=== PATIENT | male | born 1985 | race Caucasian/White ===

== ENCOUNTER 2022-11-03 11:39 | Inpatient (IN) | payer BC, SELFPAY ==
[~2022-11-03 11:39] MED LIST: Magnevist 469MG/ML 20 ML VIAL ONE
[2022-11-03 13:29] VITALS: BMI 31.0
[2022-11-03] MEDS ORDERED: Promethazine HCl 25 MG/ML VIAL IM PRN (14:18)
[2022-11-03] MEDS ORDERED: Ondansetron ODT 4 MG TAB PO PRN (14:18)
[2022-11-03] MEDS ORDERED: Acetaminophen 325 MG TAB PO PRN (14:18)
[2022-11-03] MEDS ORDERED: Sodium Chloride 0.9% 1,000 ML IV SCH (14:30)
[2022-11-03] MEDS ORDERED: Lorazepam 2 MG/ML VIAL IM PRN (14:52)
[2022-11-03] MEDS ORDERED: Lorazepam 1 MG TAB PO PRN (14:52)
[2022-11-03 14:54] LABS: Hematocrit 55.8 % (38.8-50.0); Hemoglobin 19.5 g/dL (13.5-17.5); Mean Corpuscular HGB CONC 34.9 g/dL (32.0-36.0); Mean Corpuscular Hemoglobin 32.7 pg (27.0-33.0); Mean Corpuscular Volume 93.5 fl (81.2-95.1); Mean Platelet Volume 10.1 fl (7.4-10.4); Platelet Count 207 10x3/uL (150-450); RBC Distribution Width 12.8 % (11.5-14.5); Red Blood Cell (RBC) Count 5.97 10x6/uL (4.32-5.72); White Blood Cell (WBC) Count 20.2 10x3/uL (3.5-10.5)
[2022-11-03] MEDS ORDERED: Electrolyte Replacement Protocol 1 EACH FS SCH (15:00)
[2022-11-03 15:11] LABS: ALT (SGPT) 153 U/L (8-55); AST (SGOT) 68 U/L (5-34); Albumin 3.7 g/dL (3.5-5.0); Alkaline Phosphatase 54 U/L (40-110); Anion Gap 16 mmol/L (10-20); BUN (Urea Nitrogen) 27 mg/dL (8.9-20.6); Bilirubin, Total 2.6 mg/dL (0.2-1.2); Calc. Creatinine Clearance 149 mL/min (70-130); Calcium 8.7 mg/dL (7.8-10.44); Carbon Dioxide 23 mmol/L (22-29); Chloride 99 mmol/L (98-107); Estimated GFR 87; Globulin 3.3 g/dL (2.4-3.5); Glucose 192 mg/dL (70-105); Magnesium 1.7 mg/dL (1.6-2.6); Phosphorus 1.6 mg/dL (2.3-4.7); Potassium 5.9 mmol/L (3.5-5.1); Sodium 132 mmol/L (136-145)
[2022-11-03 15:15] LABS: Cardiac Risk 2.4 (Less than 4.5); Cholesterol 106 mg/dl (< 200 Desired); HDL Cholesterol 44 mg/dL (>60 Neg Risk); LDL Cholesterol, Calculated 51 mg/dL; Triglycerides 54 mg/dL (Less than 150)
[2022-11-03] MEDS ORDERED: fentaNYL 50 mcg/mL 1 mL Vial SLOW IVP SCH ×2 (15:15→20:00)
[2022-11-03 15:20] LABS: MDiff Complete? YES
[2022-11-03 15:23] LABS: Band 14 % (5-11); Lymphocytes 3 % (21-51); Monocytes 10 % (0-10); Neutrophil 73 % (42-75)
[2022-11-03 15:26] LABS: Giant Platelets SLIGHT HPF (0-5); RBC Morph Comment Within Normal Limits; Toxic Granulation SLIGHT
[2022-11-03 15:27] LABS: Platelet Adequacy Comment Appears Adequate; Platelet Clumps SLIGHT
[2022-11-03 15:30] LABS: Lipase 1452 U/L (8-78)
[2022-11-03] MEDS ORDERED: Lactated Ringer's 1,000 ML IV SCH ×3 (15:30→15:45)
[2022-11-03] MEDS ORDERED: Ondansetron PF 4 MG/2 ML Vial IVP PRN (16:08)
[2022-11-03] MEDS ORDERED: diphenhydrAMINE 25 MG CAP PO PRN (16:08)
[2022-11-03] MEDS ORDERED: HYDROmorphone 10 mg/100 ml CADD IVPB PRN (16:08)
[2022-11-03] MEDS ORDERED: diphenhydrAMINE 50 MG/ML VIAL IVP PRN (16:08)
[2022-11-03] MEDS ORDERED: diphenhydrAMINE 50 MG/ML VIAL IM PRN (16:08)
[2022-11-03] MEDS ORDERED: Naloxone HCl 0.4 mg/ml Vial IVP PRN (16:08)
[2022-11-03] MEDS ORDERED: Naloxone HCl 0.4 mg/ml Vial IV PRN (16:08)
[2022-11-03] MEDS ORDERED: Communication Order-Pharmacy FS SCH (16:15)
[2022-11-03 16:55] LABS: ALT (SGPT) 152 U/L (8-55); AST (SGOT) 69 U/L (5-34)
[2022-11-03] MEDS: Sodium Chloride 0.9% 1,000 ML IV SCH ×2 (16:58→21:37)
[2022-11-03] MEDS ORDERED: Calcium Gluconate 100 MG/ML 10 ML IVPB SCH (17:30)
[2022-11-03] MEDS ORDERED: HYDROmorphone/PF 10 MG in Sodium Chloride 0.9% 49 ML IVPB PRN (17:45)
[2022-11-03] MEDS ORDERED: Dextrose 50% Abboject 50 ML SYRINGE SLOW IVP SCH (18:00)
[2022-11-03] MEDS ORDERED: Insulin Regular 300 UNITS/3 ML VIAL IVP SCH (18:00)
[2022-11-03] MEDS ORDERED: Calcium Gluconate 4.6 MEQ in Sodium Chloride 0.9% 100 ML IVPB SCH (18:00)
[2022-11-03] MEDS ORDERED: Sodium Bicarb 50 MEQ/50 ML Abboject 8.4% SYRINGE IVP SCH (18:00)
[2022-11-03] MEDS ORDERED: Magnesium Sulfate/D5W 1 GM/100 ML BAG IVPB SCH (20:30)
[2022-11-03] MEDS ORDERED: Magnesium 2 GM/50 ML(in water) 2 GM in Premix Bag 1 BAG IVPB SCH (21:00)
[2022-11-03 21:11] LABS: Anion Gap 15 mmol/L (10-20); BUN (Urea Nitrogen) 25 mg/dL (8.9-20.6); Calc. Creatinine Clearance 180 mL/min (70-130); Calcium 8.7 mg/dL (7.8-10.44); Carbon Dioxide 23 mmol/L (22-29); Chloride 101 mmol/L (98-107); Estimated GFR 109; Glucose 181 mg/dL (70-105); Potassium 4.6 mmol/L (3.5-5.1); Sodium 134 mmol/L (136-145)
[2022-11-03 21:27] LABS: Band 32 % (5-11); Hematocrit 51.5 % (38.8-50.0); Hemoglobin 18.2 g/dL (13.5-17.5); Lymphocytes 2 % (21-51); MDiff Complete? YES; Mean Corpuscular HGB CONC 35.3 g/dL (32.0-36.0); Mean Corpuscular Hemoglobin 32.7 pg (27.0-33.0); Mean Corpuscular Volume 92.6 fl (81.2-95.1); Mean Platelet Volume 10.2 fl (7.4-10.4); Metamyelocyte 3 % (0-0); Monocytes 7 % (0-10); Neutrophil 55 % (42-75); Platelet Adequacy Comment Appears Adequate; Platelet Count 176 10x3/uL (150-450); RBC Distribution Width 12.8 % (11.5-14.5); Reactive Lymphocytes 1 % (0-10); Red Blood Cell (RBC) Count 5.56 10x6/uL (4.32-5.72); White Blood Cell (WBC) Count 17.8 10x3/uL (3.5-10.5)
[2022-11-03] MEDS: Ketorolac Tromethamine 30 MG/ML VIAL IVP SCH (22:00)
[2022-11-03] MEDS: Thiamine HCl 200 MG/2 ML VIAL SLOW IVP SCH (22:02)
[2022-11-03] MEDS ORDERED: Potassium Phosphate 30 MMOL in Sodium Chloride 0.9% 250 ML 250 ML IVPB SCH (22:15)
[2022-11-04] MEDS: hydrALAZINE 20 MG/ML VIAL SLOW IVP PRN ×4 (00:05→15:46)
[2022-11-04] MEDS: Ketorolac Tromethamine 30 MG/ML VIAL IVP SCH ×4 (00:10→18:19)
[2022-11-04] MEDS: Sodium Chloride 0.9% 1,000 ML IV SCH ×5 (01:51→23:27)
[2022-11-04] MEDS: Morphine 2 MG/ML VIAL SLOW IVP PRN ×4 (03:24→22:04)
[2022-11-04 03:53] LABS: Magnesium 2.2 mg/dL (1.6-2.6); Phosphorus 1.8 mg/dL (2.3-4.7)
[2022-11-04 12:41] LABS: Hematocrit 47.6 % (38.8-50.0); Hemoglobin 16.8 g/dL (13.5-17.5); Mean Corpuscular HGB CONC 35.3 g/dL (32.0-36.0); Mean Corpuscular Hemoglobin 33.1 pg (27.0-33.0); Mean Corpuscular Volume 93.9 fl (81.2-95.1); Mean Platelet Volume 10.2 fl (7.4-10.4); Platelet Count 181 10x3/uL (150-450); RBC Distribution Width 13.1 % (11.5-14.5); Red Blood Cell (RBC) Count 5.07 10x6/uL (4.32-5.72); White Blood Cell (WBC) Count 18.5 10x3/uL (3.5-10.5)
[2022-11-04 13:09] LABS: MDiff Complete? YES
[2022-11-04 13:13] LABS: Band 11 % (5-11); Lymphocytes 3 % (21-51); Monocytes 4 % (0-10); Neutrophil 82 % (42-75)
[2022-11-04] MEDS ORDERED: Labetalol HCl 100 MG/20 ML VIAL SLOW IVP PRN (13:13)
[2022-11-04 13:14] LABS: Platelet Adequacy Comment Appears Adequate; RBC Morph Comment Within Normal Limits
[2022-11-04 14:28] LABS: ALT (SGPT) 91 U/L (8-55); AST (SGOT) 51 U/L (5-34); Alkaline Phosphatase 51 U/L (40-110); Anion Gap 15 mmol/L (10-20); BUN (Urea Nitrogen) 20 mg/dL (8.9-20.6); Bilirubin, Total 1.8 mg/dL (0.2-1.2); Calc. Creatinine Clearance 204 mL/min (70-130); Calcium 7.9 mg/dL (7.8-10.44); Carbon Dioxide 21 mmol/L (22-29); Chloride 106 mmol/L (98-107); Estimated GFR 117; Globulin 2.6 g/dL (2.4-3.5); Glucose 146 mg/dL (70-105); Potassium 4.8 mmol/L (3.5-5.1); Protein, Total 5.6 g/dL (6.0-8.3); Sodium 137 mmol/L (136-145)
[2022-11-04] MEDS ORDERED: Lorazepam 1 MG TAB PO PRN (14:52)
[2022-11-04] MEDS: cefTRIAXone\\ROCEPHIN 2 GM in Sodium Chloride 0.9% 100 ML IVPB SCH (15:00)
[2022-11-04 15:03] LABS: Lipase 683 U/L (8-78)
[2022-11-04 15:41] LABS: Strep pneumo Urine Ag NEGATIVE (NEGATIVE)
[2022-11-04] MEDS: Morphine 4 MG/ML VIAL SLOW IVP PRN (15:48)
[2022-11-04] MEDS: Thiamine HCl 200 MG/2 ML VIAL SLOW IVP SCH (16:05)
[2022-11-04 16:22] LABS: SARS-CoV-2 NAA Rapid Test Not Detected (NotDetected)
[2022-11-04] MEDS ORDERED: Glucagon 1 MG/ML KIT IM PRN (16:45)
[2022-11-04] MEDS ORDERED: Dextrose 50% Abboject 50 ML SYRINGE SLOW IVP PRN (16:45)
[2022-11-04] MEDS ORDERED: Dextrose 5% in Water 1,000 ML IV PRN (16:45)
[2022-11-04] MEDS: Enalaprilat Dihydrate 1.25 MG/ML VIAL SLOW IVP SCH (18:19)
[2022-11-04] MEDS: Famotidine/PF 20 mg/2ml Vial SLOW IVP SCH (20:23)
[2022-11-05] MEDS: Enalaprilat Dihydrate 1.25 MG/ML VIAL SLOW IVP SCH ×5 (00:18→23:10)
[2022-11-05] MEDS: Ketorolac Tromethamine 30 MG/ML VIAL IVP SCH ×4 (00:18→17:46)
[2022-11-05] MEDS: Sodium Chloride 0.9% 1,000 ML IV SCH ×5 (03:03→23:11)
[2022-11-05] MEDS: Morphine 2 MG/ML VIAL SLOW IVP PRN (03:03)
[2022-11-05 03:40] LABS: Hematocrit 42.3 % (38.8-50.0); Hemoglobin 14.8 g/dL (13.5-17.5); MDiff Complete? YES; Mean Corpuscular Hemoglobin 33.1 pg (27.0-33.0); Mean Corpuscular Volume 94.6 fl (81.2-95.1); Mean Platelet Volume 10.5 fl (7.4-10.4); Platelet Count 181 10x3/uL (150-450); RBC Distribution Width 13.1 % (11.5-14.5); Red Blood Cell (RBC) Count 4.47 10x6/uL (4.32-5.72); White Blood Cell (WBC) Count 14.5 10x3/uL (3.5-10.5)
[2022-11-05 03:44] LABS: PTT 28.7 sec (22.0-33.0); Prothrombin Time 11.2 sec (9.5-12.1)
[2022-11-05 04:20] LABS: ALT (SGPT) 74 U/L (8-55); AST (SGOT) 39 U/L (5-34); Albumin 2.8 g/dL (3.5-5.0); Alkaline Phosphatase 60 U/L (40-110); Anion Gap 13 mmol/L (10-20); BUN (Urea Nitrogen) 19 mg/dL (8.9-20.6); Bilirubin, Total 1.3 mg/dL (0.2-1.2); Calc. Creatinine Clearance 214 mL/min (70-130); Calcium 8.4 mg/dL (7.8-10.44); Carbon Dioxide 24 mmol/L (22-29); Chloride 104 mmol/L (98-107); Estimated GFR 119; Glucose 143 mg/dL (70-105); Lipase 497 U/L (8-78); Magnesium 2.1 mg/dL (1.6-2.6); Phosphorus 1.8 mg/dL (2.3-4.7); Potassium 3.8 mmol/L (3.5-5.1); Protein, Total 5.8 g/dL (6.0-8.3); Sodium 137 mmol/L (136-145)
[2022-11-05] MEDS ORDERED: Potassium Phosphate 15 MMOL in Sodium Chloride 0.9% 100 ML IVPB SCH (04:30)
[2022-11-05 04:35] LABS: Band 3 % (5-11); Lymphocytes 5 % (21-51); Monocytes 4 % (0-10); Neutrophil 88 % (42-75)
[2022-11-05 04:38] LABS: Platelet Adequacy Comment Appears Adequate; RBC Morph Comment Within Normal Limits
[2022-11-05] MEDS: Morphine 4 MG/ML VIAL SLOW IVP PRN ×3 (07:14→20:04)
[2022-11-05] MEDS: Famotidine/PF 20 mg/2ml Vial SLOW IVP SCH (07:41)
[2022-11-05] MEDS: hydrALAZINE 20 MG/ML VIAL SLOW IVP PRN (12:15)
[2022-11-05] MEDS ORDERED: [UNRECOGNIZED DRUG - OTHER] IV SCH (14:00)
[2022-11-05] MEDS ORDERED: COPPER IV SCH (14:00)
[2022-11-05] MEDS ORDERED: SELENIUM IV SCH (14:00)
[2022-11-05] MEDS ORDERED: ZINC IV SCH (14:00)
[2022-11-05] MEDS ORDERED: MANGANESE IV SCH (14:00)
[2022-11-05] MEDS ORDERED: MULTITRACE IV SCH (14:00)
[2022-11-05] MEDS ORDERED: MULTIVITAMINS IV SCH ×2 (14:00)
[2022-11-05] MEDS ORDERED: [UNRECOGNIZED DRUG - OTHER] IV SCH (14:00)
[2022-11-05] MEDS ORDERED: Lorazepam 1 MG TAB PO PRN (14:52)
[2022-11-05] MEDS: cefTRIAXone\\ROCEPHIN 2 GM in Sodium Chloride 0.9% 100 ML IVPB SCH (14:55)
[2022-11-05] MEDS: Lorazepam 0.5 MG TAB PO SCH ×2 (14:56→20:04)
[2022-11-05] MEDS: Thiamine HCl 200 MG/2 ML VIAL SLOW IVP SCH (16:42)
[2022-11-05] MEDS: HumaLOG 300 UNITS/3 ML VIAL SC PRN ×2 (18:23→23:20)
[2022-11-06] MEDS: Morphine 4 MG/ML VIAL SLOW IVP PRN ×2 (01:37→05:39)
[2022-11-06] MEDS: Lorazepam 0.5 MG TAB PO SCH ×2 (02:47→08:29)
[2022-11-06 03:11] LABS: ALT (SGPT) 76 U/L (8-55); AST (SGOT) 52 U/L (5-34); Albumin 2.8 g/dL (3.5-5.0); Alkaline Phosphatase 71 U/L (40-110); Anion Gap 11 mmol/L (10-20); BUN (Urea Nitrogen) 17 mg/dL (8.9-20.6); Bilirubin, Total 1.3 mg/dL (0.2-1.2); Calc. Creatinine Clearance 217 mL/min (70-130); Calcium 8.2 mg/dL (7.8-10.44); Carbon Dioxide 26 mmol/L (22-29); Chloride 105 mmol/L (98-107); Estimated GFR 119; Globulin 2.9 g/dL (2.4-3.5); Glucose 255 mg/dL (70-105); Lipase 281 U/L (8-78); Magnesium 2.4 mg/dL (1.6-2.6); Potassium 3.8 mmol/L (3.5-5.1); Protein, Total 5.7 g/dL (6.0-8.3); Sodium 138 mmol/L (136-145)
[2022-11-06 03:15] LABS: #Basophils 0.1 10x3/uL (0.0-0.2); #Eosinphils 0.2 10x3/uL (0.0-0.5); #Monocytes 1.1 10x3/uL (0.0-1.1); #Neutrophils 11.5 10x3/uL (1.5-8.4); %Basophils 0.4 % (0.0-2.0); %Eosinophils 1.5 % (0.0-6.0); %Lymphocytes 4.4 % (18.0-47.0); %Neutrophils 84.5 % (40.0-75.0); Hematocrit 38.1 % (38.8-50.0); Mean Corpuscular HGB CONC 34.1 g/dL (32.0-36.0); Mean Corpuscular Hemoglobin 32.5 pg (27.0-33.0); Mean Corpuscular Volume 95.3 fl (81.2-95.1); Mean Platelet Volume 9.7 fl (7.4-10.4); Platelet Count 174 10x3/uL (150-450); RBC Distribution Width 13.2 % (11.5-14.5); White Blood Cell (WBC) Count 13.6 10x3/uL (3.5-10.5)
[2022-11-06] MEDS: Enalaprilat Dihydrate 1.25 MG/ML VIAL SLOW IVP SCH ×4 (05:00→23:00)
[2022-11-06] MEDS: Sodium Chloride 0.9% 1,000 ML IV SCH ×3 (05:00→23:01)
[2022-11-06] MEDS: HumaLOG 300 UNITS/3 ML VIAL SC PRN ×3 (05:09→18:09)
[2022-11-06] MEDS ORDERED: Potassium Phosphate 15 MMOL in Sodium Chloride 0.9% 100 ML IVPB SCH ×2 (06:00→08:00)
[2022-11-06] MEDS: Pantoprazole 40 MG VIAL IVP SCH (08:29)
[2022-11-06] MEDS ORDERED: Acetaminophen 325 MG TAB PO PRN (09:47)
[2022-11-06] MEDS: hydrALAZINE 20 MG/ML VIAL SLOW IVP PRN (09:48)
[2022-11-06] MEDS ORDERED: Furosemide 20 MG/2 ML VIAL SLOW IVP SCH (10:30)
[2022-11-06] MEDS: traMADol HCl 50 MG TAB PO PRN ×3 (11:39→20:24)
[2022-11-06] MEDS ORDERED: FAT EMULSION IV SCH (14:00)
[2022-11-06] MEDS ORDERED: MULTIVITAMINS IV SCH (14:00)
[2022-11-06] MEDS ORDERED: Fat Emulsion 250 ML IVPB SCH (14:00)
[2022-11-06] MEDS ORDERED: [UNRECOGNIZED DRUG - OTHER] IV SCH (14:00)
[2022-11-06] MEDS ORDERED: MULTITRACE IV SCH (14:00)
[2022-11-06] MEDS: cefTRIAXone\\ROCEPHIN 2 GM in Sodium Chloride 0.9% 100 ML IVPB SCH (15:39)
[2022-11-06] MEDS: Lorazepam 0.5 MG TAB PO PRN ×2 (16:25→20:24)
[2022-11-06] MEDS: Morphine 2 MG/ML VIAL SLOW IVP PRN (23:58)
[2022-11-07] MEDS: hydrALAZINE 20 MG/ML VIAL SLOW IVP PRN ×4 (00:03→15:33)
[2022-11-07] MEDS: HumaLOG 300 UNITS/3 ML VIAL SC PRN ×5 (00:10→23:25)
[2022-11-07] MEDS: Lorazepam 0.5 MG TAB PO PRN ×4 (00:26→20:34)
[2022-11-07] MEDS: Morphine 2 MG/ML VIAL SLOW IVP PRN ×2 (04:06→20:35)
[2022-11-07 04:15] LABS: Phosphorus 3.1 mg/dL (2.3-4.7)
[2022-11-07 04:16] LABS: ALT (SGPT) 120 U/L (8-55); AST (SGOT) 90 U/L (5-34); Albumin 2.8 g/dL (3.5-5.0); Alkaline Phosphatase 83 U/L (40-110); Anion Gap 15 mmol/L (10-20); BUN (Urea Nitrogen) 16 mg/dL (8.9-20.6); Bilirubin, Total 1.2 mg/dL (0.2-1.2); Calc. Creatinine Clearance 232 mL/min (70-130); Calcium 8.4 mg/dL (7.8-10.44); Carbon Dioxide 22 mmol/L (22-29); Chloride 103 mmol/L (98-107); Estimated GFR 121; Globulin 3.1 g/dL (2.4-3.5); Glucose 233 mg/dL (70-105); Lipase 154 U/L (8-78); Magnesium 2.4 mg/dL (1.6-2.6); Potassium 3.6 mmol/L (3.5-5.1); Protein, Total 5.9 g/dL (6.0-8.3); Sodium 136 mmol/L (136-145)
[2022-11-07 04:24] LABS: Hematocrit 37.2 % (38.8-50.0); Hemoglobin 12.6 g/dL (13.5-17.5); Mean Corpuscular HGB CONC 33.9 g/dL (32.0-36.0); Mean Corpuscular Volume 94.4 fl (81.2-95.1); Mean Platelet Volume 9.8 fl (7.4-10.4); Platelet Count 190 10x3/uL (150-450); RBC Distribution Width 13.1 % (11.5-14.5); Red Blood Cell (RBC) Count 3.94 10x6/uL (4.32-5.72); White Blood Cell (WBC) Count 12.3 10x3/uL (3.5-10.5)
[2022-11-07 04:25] LABS: MDiff Complete? YES
[2022-11-07] MEDS: Enalaprilat Dihydrate 1.25 MG/ML VIAL SLOW IVP SCH ×2 (05:51→11:29)
[2022-11-07 05:54] LABS: Eosinophils 1 % (0-10); Lymphocytes 7 % (21-51); Monocytes 7 % (0-10); Neutrophil 84 % (42-75); Reactive Lymphocytes 1 % (0-10)
[2022-11-07 05:55] LABS: Platelet Adequacy Comment Appears Adequate; RBC Morph Comment Within Normal Limits
[2022-11-07] MEDS: Pantoprazole 40 MG VIAL IVP SCH (08:22)
[2022-11-07] MEDS: Naloxegol 12.5 MG TAB PO SCH (08:36)
[2022-11-07] MEDS ORDERED: Furosemide 20 MG/2 ML VIAL SLOW IVP SCH (09:00)
[2022-11-07] MEDS: Polyethylene Glycol 3350 17 GM Packet PO SCH (10:50)
[2022-11-07] MEDS: cefTRIAXone\\ROCEPHIN 2 GM in Sodium Chloride 0.9% 100 ML IVPB SCH (14:32)
[2022-11-07] MEDS: cloNIDine 0.1 MG TAB PO SCH ×2 (16:52→20:34)
[2022-11-08] MEDS: Morphine 2 MG/ML VIAL SLOW IVP PRN (00:36)
[2022-11-08] MEDS ORDERED: Zolpidem Tartrate 5 MG TAB PO SCH (05:15)
[2022-11-08 05:26] LABS: Hematocrit 38.4 % (38.8-50.0); Hemoglobin 13.5 g/dL (13.5-17.5); Mean Corpuscular HGB CONC 35.2 g/dL (32.0-36.0); Mean Corpuscular Hemoglobin 32.7 pg (27.0-33.0); Mean Platelet Volume 10.1 fl (7.4-10.4); Platelet Count 238 10x3/uL (150-450); RBC Distribution Width 12.9 % (11.5-14.5); Red Blood Cell (RBC) Count 4.13 10x6/uL (4.32-5.72); White Blood Cell (WBC) Count 17.1 10x3/uL (3.5-10.5)
[2022-11-08 05:28] LABS: ALT (SGPT) 125 U/L (8-55); AST (SGOT) 64 U/L (5-34); Albumin 2.6 g/dL (3.5-5.0); Alkaline Phosphatase 83 U/L (40-110); Anion Gap 11 mmol/L (10-20); BUN (Urea Nitrogen) 17 mg/dL (8.9-20.6); Bilirubin, Total 1.5 mg/dL (0.2-1.2); Calc. Creatinine Clearance 229 mL/min (70-130); Calcium 8.3 mg/dL (7.8-10.44); Carbon Dioxide 28 mmol/L (22-29); Chloride 99 mmol/L (98-107); Estimated GFR 121; Globulin 2.9 g/dL (2.4-3.5); Glucose 151 mg/dL (70-105); Lipase 98 U/L (8-78); Magnesium 2.1 mg/dL (1.6-2.6); Potassium 3.5 mmol/L (3.5-5.1); Protein, Total 5.5 g/dL (6.0-8.3); Sodium 134 mmol/L (136-145)
[2022-11-08 05:30] LABS: Phosphorus 4.4 mg/dL (2.3-4.7)
[2022-11-08] MEDS: traMADol HCl 50 MG TAB PO PRN (05:41)
[2022-11-08 06:09] LABS: Band 2 % (5-11)
[2022-11-08 06:10] LABS: Lymphocytes 5 % (21-51); Monocytes 7 % (0-10); Neutrophil 83 % (42-75); Reactive Lymphocytes 3 % (0-10)
[2022-11-08 06:13] LABS: Platelet Adequacy Comment Appears Adequate; RBC Morph Comment Within Normal Limits
[2022-11-08 06:24] LABS: MDiff Complete? YES
[2022-11-08] MEDS ORDERED: Potassium Chloride 20 MEQ TAB PO SCH (08:00)
[2022-11-08] MEDS: Naloxegol 12.5 MG TAB PO SCH (08:05)
[2022-11-08] MEDS: cloNIDine 0.1 MG TAB PO SCH ×4 (08:43→20:56)
[2022-11-08] MEDS: Pantoprazole 40 MG VIAL IVP SCH (08:44)
[2022-11-08] MEDS: Polyethylene Glycol 3350 17 GM Packet PO SCH (08:44)
[2022-11-08] MEDS: Zolpidem Tartrate 5 MG TAB PO PRN (21:04)
[2022-11-09 03:56] LABS: Hematocrit 35.9 % (38.8-50.0); Hemoglobin 12.4 g/dL (13.5-17.5); Mean Corpuscular HGB CONC 34.5 g/dL (32.0-36.0); Mean Corpuscular Volume 92.5 fl (81.2-95.1); Mean Platelet Volume 10.3 fl (7.4-10.4); Platelet Count 246 10x3/uL (150-450); RBC Distribution Width 12.5 % (11.5-14.5); Red Blood Cell (RBC) Count 3.88 10x6/uL (4.32-5.72); White Blood Cell (WBC) Count 20.2 10x3/uL (3.5-10.5)
[2022-11-09 04:11] LABS: Phosphorus 3.8 mg/dL (2.3-4.7)
[2022-11-09 04:14] LABS: ALT (SGPT) 141 U/L (8-55); AST (SGOT) 108 U/L (5-34); Albumin 2.5 g/dL (3.5-5.0); Alkaline Phosphatase 106 U/L (40-110); Anion Gap 12 mmol/L (10-20); BUN (Urea Nitrogen) 14 mg/dL (8.9-20.6); Bilirubin, Total 1.9 mg/dL (0.2-1.2); Calc. Creatinine Clearance 226 mL/min (70-130); Carbon Dioxide 25 mmol/L (22-29); Chloride 98 mmol/L (98-107); Estimated GFR 120; Globulin 2.8 g/dL (2.4-3.5); Glucose 132 mg/dL (70-105); Magnesium 1.9 mg/dL (1.6-2.6); Potassium 3.6 mmol/L (3.5-5.1); Protein, Total 5.3 g/dL (6.0-8.3); Sodium 131 mmol/L (136-145)
[2022-11-09] MEDS: traMADol HCl 50 MG TAB PO PRN ×3 (04:55→20:27)
[2022-11-09 05:17] LABS: MDiff Complete? YES
[2022-11-09 05:33] LABS: Platelet Adequacy Comment Appears Adequate; RBC Morph Comment Within Normal Limits
[2022-11-09 05:37] LABS: Band 5 % (5-11); Lymphocytes 9 % (21-51); Monocytes 10 % (0-10); Neutrophil 76 % (42-75)
[2022-11-09] MEDS ORDERED: Magnesium 2 GM/50 ML(in water) 2 GM in Premix Bag 1 BAG IVPB SCH (08:00)
[2022-11-09] MEDS: cloNIDine 0.1 MG TAB PO SCH ×4 (09:23→20:27)
[2022-11-09] MEDS: Polyethylene Glycol 3350 17 GM Packet PO SCH (09:24)
[2022-11-09] MEDS: Pantoprazole 40 MG VIAL IVP SCH (09:25)
[2022-11-09] MEDS: Naloxegol 12.5 MG TAB PO SCH (10:01)
[2022-11-09] MEDS ORDERED: Vancomycin 1 GM in Premix Bag 1 BAG IVPB SCH (13:30)
[2022-11-09] MEDS ORDERED: VANCOMYCIN 1.75 GM/350 ML BAG 1.75 GM in Premix Bag 1 BAG IVPB SCH (13:30)
[2022-11-09] MEDS ORDERED: Piperacillin/Tazobactam 3.375 GM in Sodium Chloride 0.9% 100 ML IVPB SCH (13:30)
[2022-11-09] MEDS ORDERED: Piperacillin/Tazobactam 4.5 GM in Sodium Chloride 0.9% 100 ML IVPB SCH (14:00)
[2022-11-09] MEDS: Piperacillin/Tazobactam 3.375 GM in Sodium Chloride 0.9% 100 ML IVPB SCH (19:24)
[2022-11-09] MEDS: Vancomycin HCl 1 GM in Sodium Chloride 0.9% 250 ML 250 ML IVPB SCH (22:22)
[2022-11-09] MEDS: Zolpidem Tartrate 5 MG TAB PO PRN (22:28)
[2022-11-10] MEDS: Piperacillin/Tazobactam 3.375 GM in Sodium Chloride 0.9% 100 ML IVPB SCH ×4 (01:26→18:44)
[2022-11-10 04:18] LABS: ALT (SGPT) 199 U/L (8-55); AST (SGOT) 121 U/L (5-34); Albumin 2.5 g/dL (3.5-5.0); Alkaline Phosphatase 122 U/L (40-110); Anion Gap 12 mmol/L (10-20); BUN (Urea Nitrogen) 12 mg/dL (8.9-20.6); Bilirubin, Total 1.8 mg/dL (0.2-1.2); Calc. Creatinine Clearance 226 mL/min (70-130); Calcium 7.9 mg/dL (7.8-10.44); Carbon Dioxide 25 mmol/L (22-29); Chloride 98 mmol/L (98-107); Estimated GFR 120; Glucose 111 mg/dL (70-105); Magnesium 2.1 mg/dL (1.6-2.6); Potassium 3.5 mmol/L (3.5-5.1); Protein, Total 5.5 g/dL (6.0-8.3); Sodium 131 mmol/L (136-145)
[2022-11-10 04:24] LABS: #Basophils 0.1 10x3/uL (0.0-0.2); #Eosinphils 0.5 10x3/uL (0.0-0.5); #Monocytes 1.6 10x3/uL (0.0-1.1); #Neutrophils 16.9 10x3/uL (1.5-8.4); %Basophils 0.5 % (0.0-2.0); %Eosinophils 2.5 % (0.0-6.0); %Monocytes 7.5 % (0.0-10.0); %Neutrophils 78.4 % (40.0-75.0); Hematocrit 35.4 % (38.8-50.0); Hemoglobin 12.3 g/dL (13.5-17.5); Mean Corpuscular HGB CONC 34.7 g/dL (32.0-36.0); Mean Corpuscular Hemoglobin 32.1 pg (27.0-33.0); Mean Corpuscular Volume 92.4 fl (81.2-95.1); Mean Platelet Volume 10.4 fl (7.4-10.4); Platelet Count 245 10x3/uL (150-450); RBC Distribution Width 12.6 % (11.5-14.5); Red Blood Cell (RBC) Count 3.83 10x6/uL (4.32-5.72); White Blood Cell (WBC) Count 21.6 10x3/uL (3.5-10.5)
[2022-11-10 04:44] LABS: Phosphorus 4.2 mg/dL (2.3-4.7)
[2022-11-10] MEDS: Vancomycin HCl 1 GM in Sodium Chloride 0.9% 250 ML 250 ML IVPB SCH (06:13)
[2022-11-10] MEDS ORDERED: Potassium Chloride 20 MEQ TAB PO SCH (08:00)
[2022-11-10] MEDS ORDERED: Cyclobenzaprine 10 MG TAB PO SCH (09:00)
[2022-11-10] MEDS: traMADol HCl 50 MG TAB PO PRN ×2 (10:12→19:27)
[2022-11-10] MEDS: Naloxegol 12.5 MG TAB PO SCH (10:16)
[2022-11-10] MEDS: cloNIDine 0.1 MG TAB PO SCH ×4 (10:16→21:48)
[2022-11-10] MEDS: Pantoprazole 40 MG VIAL IVP SCH (10:16)
[2022-11-10] MEDS: Polyethylene Glycol 3350 17 GM Packet PO SCH (10:17)
[2022-11-10 13:39] LABS: Vancomycin, Trough 7.8 ug/mL
[2022-11-10] MEDS ORDERED: VANCOMYCIN 1.25 GM/250 ML BAG 1.25 GM in Premix Bag 1 BAG IVPB SCH (15:15)
[2022-11-10] MEDS: VANCOMYCIN 1.25 GM/250 ML BAG 1.25 GM in Premix Bag 1 BAG IVPB SCH (21:47)
[2022-11-11] MEDS: traMADol HCl 50 MG TAB PO PRN ×3 (00:13→23:00)
[2022-11-11] MEDS: Piperacillin/Tazobactam 3.375 GM in Sodium Chloride 0.9% 100 ML IVPB SCH ×3 (02:31→17:52)
[2022-11-11 03:51] LABS: #Basophils 0.1 10x3/uL (0.0-0.2); #Eosinphils 0.6 10x3/uL (0.0-0.5); #Monocytes 1.7 10x3/uL (0.0-1.1); %Basophils 0.5 % (0.0-2.0); %Eosinophils 2.9 % (0.0-6.0); %Lymphocytes 6.6 % (18.0-47.0); %Monocytes 7.8 % (0.0-10.0); %Neutrophils 79.3 % (40.0-75.0); Hematocrit 32.9 % (38.8-50.0); Hemoglobin 11.4 g/dL (13.5-17.5); Mean Corpuscular HGB CONC 34.7 g/dL (32.0-36.0); Mean Corpuscular Hemoglobin 32.3 pg (27.0-33.0); Mean Corpuscular Volume 93.2 fl (81.2-95.1); Mean Platelet Volume 10.7 fl (7.4-10.4); Platelet Count 264 10x3/uL (150-450); RBC Distribution Width 12.4 % (11.5-14.5); Red Blood Cell (RBC) Count 3.53 10x6/uL (4.32-5.72); White Blood Cell (WBC) Count 21.4 10x3/uL (3.5-10.5)
[2022-11-11 04:14] LABS: Phosphorus 3.8 mg/dL (2.3-4.7)
[2022-11-11 04:17] LABS: ALT (SGPT) 191 U/L (8-55); AST (SGOT) 114 U/L (5-34); Albumin 2.5 g/dL (3.5-5.0); Alkaline Phosphatase 120 U/L (40-110); Anion Gap 12 mmol/L (10-20); BUN (Urea Nitrogen) 9 mg/dL (8.9-20.6); Bilirubin, Total 1.5 mg/dL (0.2-1.2); Calc. Creatinine Clearance 209 mL/min (70-130); Calcium 7.9 mg/dL (7.8-10.44); Carbon Dioxide 26 mmol/L (22-29); Chloride 98 mmol/L (98-107); Estimated GFR 118; Globulin 3.2 g/dL (2.4-3.5); Glucose 109 mg/dL (70-105); Potassium 3.9 mmol/L (3.5-5.1); Protein, Total 5.7 g/dL (6.0-8.3); Sodium 132 mmol/L (136-145)
[2022-11-11] MEDS: VANCOMYCIN 1.25 GM/250 ML BAG 1.25 GM in Premix Bag 1 BAG IVPB SCH ×2 (05:12→14:38)
[2022-11-11] MEDS ORDERED: Magnesium 2 GM/50 ML(in water) 2 GM in Premix Bag 1 BAG IVPB SCH (08:00)
[2022-11-11] MEDS: Polyethylene Glycol 3350 17 GM Packet PO SCH (08:50)
[2022-11-11] MEDS: cloNIDine 0.1 MG TAB PO SCH ×4 (08:52→21:34)
[2022-11-11] MEDS: Pantoprazole 40 MG VIAL IVP SCH (08:52)
[2022-11-11] MEDS: Naloxegol 12.5 MG TAB PO SCH (08:52)
[2022-11-11] MEDS ORDERED: Simethicone Chewable 80 MG TAB PO PRN (08:55)
[2022-11-11] MEDS ORDERED: Cyclobenzaprine 10 MG TAB PO SCH (09:00)
[2022-11-11 14:00] LABS: Bilirubin Neg (Negative); Blood, Urine Negative (Negative); Clarity Clear (Clear); Glucose, Urine (Dipstick) Normal (Negative); Ketone, Urine Negative (Negative); Leukocyte Negative (Negative); Nitrite Negative (Negative); Protein, Urine (Dipstick) Negative (Neg-Trace); Specific Gravity, Urine 1.005 (1.005-1.030); Urobilinogen Normal mg/dL (Less than 2)
[2022-11-11 14:15] LABS: Vancomycin, Trough 8.9 ug/mL
[2022-11-11] MEDS ORDERED: Vancomycin 1.5 GRAM/300 ML BAG 1.5 GM in Premix Bag 1 BAG IVPB SCH (14:15)
[2022-11-11] MEDS: Vancomycin 1.5 GRAM/300 ML BAG 1.5 GM in Premix Bag 1 BAG IVPB SCH (21:32)
[2022-11-11] MEDS: HumaLOG 300 UNITS/3 ML VIAL SC PRN (21:35)
[2022-11-12] MEDS: Piperacillin/Tazobactam 3.375 GM in Sodium Chloride 0.9% 100 ML IVPB SCH ×2 (01:58→10:26)
[2022-11-12 05:20] LABS: #Basophils 0.1 10x3/uL (0.0-0.2); #Eosinphils 0.5 10x3/uL (0.0-0.5); #Monocytes 1.4 10x3/uL (0.0-1.1); #Neutrophils 12.4 10x3/uL (1.5-8.4); %Basophils 0.4 % (0.0-2.0); %Eosinophils 3.2 % (0.0-6.0); %Monocytes 8.6 % (0.0-10.0); %Neutrophils 75.1 % (40.0-75.0); Hematocrit 33.9 % (38.8-50.0); Hemoglobin 11.6 g/dL (13.5-17.5); Mean Corpuscular HGB CONC 34.2 g/dL (32.0-36.0); Mean Corpuscular Hemoglobin 32.2 pg (27.0-33.0); Mean Corpuscular Volume 94.2 fl (81.2-95.1); Mean Platelet Volume 10.2 fl (7.4-10.4); Platelet Count 311 10x3/uL (150-450); RBC Distribution Width 12.6 % (11.5-14.5); White Blood Cell (WBC) Count 16.5 10x3/uL (3.5-10.5)
[2022-11-12 05:40] LABS: Phosphorus 4.5 mg/dL (2.3-4.7)
[2022-11-12 05:45] LABS: ALT (SGPT) 124 U/L (8-55); AST (SGOT) 55 U/L (5-34); Albumin 2.6 g/dL (3.5-5.0); Alkaline Phosphatase 113 U/L (40-110); Anion Gap 14 mmol/L (10-20); BUN (Urea Nitrogen) 10 mg/dL (8.9-20.6); Bilirubin, Total 1.3 mg/dL (0.2-1.2); Calc. Creatinine Clearance 204 mL/min (70-130); Calcium 8.1 mg/dL (7.8-10.44); Carbon Dioxide 26 mmol/L (22-29); Chloride 98 mmol/L (98-107); Estimated GFR 117; Globulin 3.5 g/dL (2.4-3.5); Glucose 108 mg/dL (70-105); Magnesium 2.2 mg/dL (1.6-2.6); Potassium 4.8 mmol/L (3.5-5.1); Protein, Total 6.1 g/dL (6.0-8.3); Sodium 133 mmol/L (136-145)
[2022-11-12] MEDS: Vancomycin 1.5 GRAM/300 ML BAG 1.5 GM in Premix Bag 1 BAG IVPB SCH (06:52)
[2022-11-12] MEDS: Naloxegol 12.5 MG TAB PO SCH (06:53)
[2022-11-12] MEDS: traMADol HCl 50 MG TAB PO PRN ×2 (07:00→21:50)
[2022-11-12] MEDS: Pantoprazole 40 MG VIAL IVP SCH (09:01)
[2022-11-12] MEDS: Polyethylene Glycol 3350 17 GM Packet PO SCH (09:01)
[2022-11-12] MEDS: cloNIDine 0.1 MG TAB PO SCH ×4 (09:01→21:03)
[2022-11-12] MEDS ORDERED: LevoFLOXacin 750 mg/D5W 750 MG in Premix Bag 1 BAG IVPB SCH ×2 (11:00→14:00)
[2022-11-13] MEDS: traMADol HCl 50 MG TAB PO PRN (04:49)
[2022-11-13] MEDS: Naloxegol 12.5 MG TAB PO SCH (05:19)
[2022-11-13 05:32] LABS: #Basophils 0.1 10x3/uL (0.0-0.2); #Eosinphils 0.5 10x3/uL (0.0-0.5); #Monocytes 1.2 10x3/uL (0.0-1.1); #Neutrophils 9.7 10x3/uL (1.5-8.4); %Basophils 0.7 % (0.0-2.0); %Eosinophils 3.5 % (0.0-6.0); %Lymphocytes 10.6 % (18.0-47.0); %Neutrophils 73.5 % (40.0-75.0); Hematocrit 33.2 % (38.8-50.0); Hemoglobin 11.4 g/dL (13.5-17.5); Mean Corpuscular HGB CONC 34.3 g/dL (32.0-36.0); Mean Corpuscular Hemoglobin 31.7 pg (27.0-33.0); Mean Corpuscular Volume 92.2 fl (81.2-95.1); Mean Platelet Volume 10.1 fl (7.4-10.4); Platelet Count 332 10x3/uL (150-450); RBC Distribution Width 12.3 % (11.5-14.5); White Blood Cell (WBC) Count 13.2 10x3/uL (3.5-10.5)
[2022-11-13 05:42] LABS: ALT (SGPT) 101 U/L (8-55); AST (SGOT) 47 U/L (5-34); Albumin 2.8 g/dL (3.5-5.0); Alkaline Phosphatase 107 U/L (40-110); Anion Gap 11 mmol/L (10-20); BUN (Urea Nitrogen) 10 mg/dL (8.9-20.6); Bilirubin, Total 1.1 mg/dL (0.2-1.2); Calc. Creatinine Clearance 211 mL/min (70-130); Calcium 8.6 mg/dL (7.8-10.44); Carbon Dioxide 25 mmol/L (22-29); Chloride 96 mmol/L (98-107); Estimated GFR 118; Globulin 3.8 g/dL (2.4-3.5); Glucose 118 mg/dL (70-105); Potassium 4.1 mmol/L (3.5-5.1); Protein, Total 6.6 g/dL (6.0-8.3); Sodium 128 mmol/L (136-145)
[2022-11-13] MEDS: Polyethylene Glycol 3350 17 GM Packet PO SCH ×2 (07:51→09:39)
[2022-11-13] MEDS: cloNIDine 0.1 MG TAB PO SCH (09:39)
[2022-11-13] MEDS: Pantoprazole 40 MG VIAL IVP SCH (09:39)
[2022-11-13 13:02] VITALS: BP 129/94; TEMP 98.6
== END 2022-11-13 13:35 | disposition home or self-care (01) | DRG 438 ==
LOC: CSHTELE 12:56 → CSHICU 21:35 → CSHTELE 11-08 09:00
PROVIDERS: ADMIT Internal Medicine; ATTEND Internal Medicine
PROC: 02HV33Z Insertion of Infusion Device into Superior Vena Cava, Percutaneous Approach (ICD-10-PCS; principal; 2022-11-04)
PROC: 3E0436Z Introduction of Nutritional Substance into Central Vein, Percutaneous Approach (ICD-10-PCS; 2022-11-04)
PROC: 0DH67UZ Insertion of Feeding Device into Stomach, Via Natural or Artificial Opening (ICD-10-PCS; 2022-11-04)
DX: K85.22 Alcohol induced acute pancreatitis with infected necrosis (principal); A41.9 Sepsis, unspecified organism; J18.9 Pneumonia, unspecified organism; E46 Unspecified protein-calorie malnutrition; E87.1 Hypo-osmolality and hyponatremia; K56.7 Ileus, unspecified; J90 Pleural effusion, not elsewhere classified; F90.9 Attention-deficit hyperactivity disorder, unspecified type; G40.909 Epilepsy, unspecified, not intractable, without status epilepticus; F10.10 Alcohol abuse, uncomplicated; E87.5 Hyperkalemia; E83.42 Hypomagnesemia; E83.39 Other disorders of phosphorus metabolism; E86.0 Dehydration; I16.0 Hypertensive urgency; R19.7 Diarrhea, unspecified; E88.09 Other disorders of plasma-protein metabolism, not elsewhere classified; Z20.822 Contact with and (suspected) exposure to COVID-19; Z68.31 Body mass index [BMI] 31.0-31.9, adult
CPT/HCPCS: 36415; 36416; 71045; 74018; 74183; 80053; 80061; 80202; 81003; 83690; 83735; 83880; 84100; 84134; 84145; 84450; 84460; 85025; 85610; 85730; 87040; 87070; 87205; 87324; 87449; 93005; 93010; 94760; 94762; A9579; C9113; J0360; J0696; J1650; J1815; J1885; J1940; J1956; J2270; J2272; J2543; J3010; J3370; J3411; J3475; J3490; J7050; J7120; Q0162; S0028

== ENCOUNTER 2022-11-16 10:54 | Emergency (ER) | payer BC ==
[2022-11-16] MEDS ORDERED: traMADol HCl 50 MG TAB ONE (11:18)
[2022-11-16 11:37] LABS: #Basophils 0.1 10x3/uL (0.0-0.2); #Eosinphils 0.7 10x3/uL (0.0-0.5); #Monocytes 0.9 10x3/uL (0.0-1.1); %Basophils 1.1 % (0.0-2.0); %Eosinophils 5.9 % (0.0-6.0); %Lymphocytes 13.6 % (18.0-47.0); %Neutrophils 68.7 % (40.0-75.0); Hematocrit 43.6 % (38.8-50.0); Hemoglobin 14.8 g/dL (13.5-17.5); Mean Corpuscular HGB CONC 33.9 g/dL (32.0-36.0); Mean Corpuscular Volume 94.2 fl (81.2-95.1); Mean Platelet Volume 9.7 fl (7.4-10.4); Platelet Count 781 10x3/uL (150-450); RBC Distribution Width 12.3 % (11.5-14.5); Red Blood Cell (RBC) Count 4.63 10x6/uL (4.32-5.72); White Blood Cell (WBC) Count 11.6 10x3/uL (3.5-10.5)
[2022-11-16 11:52] LABS: Bilirubin Neg (Negative); Blood, Urine Negative (Negative); Clarity Clear (Clear); Glucose, Urine (Dipstick) Normal (Negative); Ketone, Urine Negative (Negative); Leukocyte Negative (Negative); Nitrite Negative (Negative); Protein, Urine (Dipstick) 15 mg/dl (Neg-Trace); Specific Gravity, Urine 1.025 (1.005-1.030); Urobilinogen Normal mg/dL (Less than 2)
[2022-11-16 11:59] LABS: Anion Gap 17 mmol/L (10-20); BUN (Urea Nitrogen) 13 mg/dL (8.9-20.6); Carbon Dioxide 23 mmol/L (22-29); Chloride 100 mmol/L (98-107); Potassium 4.6 mmol/L (3.5-5.1); Sodium 135 mmol/L (136-145)
[2022-11-16 12:00] LABS: ALT (SGPT) 69 U/L (8-55); AST (SGOT) 40 U/L (5-34); Alkaline Phosphatase 143 U/L (40-110); Bilirubin, Total 0.9 mg/dL (0.2-1.2); CRP (Inflammatory) 10.74 mg/dL (= or < 0.5); Calc. Creatinine Clearance 0 mL/min (70-130); Estimated GFR 114; Globulin 5.4 g/dL (2.4-3.5); Glucose 110 mg/dL (70-105); Protein, Total 9.4 g/dL (6.0-8.3)
[2022-11-16 12:30] LABS: CAUTI Indications for Culture Fever or rigors; RBC/HPF 0-3 HPF (0-3); Squamous Epithelial 0-3 HPF (0-3); Transitional Epithelial 0-3 HPF (None Seen); WBC/HPF 0-3 HPF (0-3)
[2022-11-16 12:35] LABS: Bacteria/HPF 2+ HPF (None Seen); Mucous/LPF 1+ LPF (<2+); Urine Culture Reflex No No
[2022-11-16] MEDS ORDERED: Iopamidol 300 61% 100 ML VIAL FS ONE (13:48)
== END 2022-11-16 13:47 | disposition home or self-care (01) ==
LOC: CSHERS 10:54
DX: J18.9 Pneumonia, unspecified organism (principal); K85.90 Acute pancreatitis without necrosis or infection, unspecified
CPT/HCPCS: 36415; 71045; 74177; 80053; 81001; 83605; 83690; 85025; 86140; 87040; Q9967